=== PATIENT | male | born 1975 ===

== ENCOUNTER 2017-08-29 17:08 | Emergency (ER) | payer OTHER ==
[2017-08-29 17:18] VITALS: BMI 28.3
[2017-08-29 17:21] VITALS: BP 130/78; PULSE 77; RESP 18; TEMP 98.9; O2SAT 99
[2017-08-29] MEDS ORDERED: Erythromycin 0.5% Ophth Oint 1 APPLIC/3.5 G OS STA (17:31)
--- NOTE | 2017-08-29 17:33 | C.PDOC ---
History Of Present Illness 41-year-old male presents to the ED with complaints of 2 days of left upper eyelid swelling and redness. He states it feels itchy and painful when pressed. He denies any visual changes, foreign body, or discharge. No trauma or injury to eye. Patient denies contact use. Time Seen by Provider: 08/29/17 17:20 Chief Complaint (Nursing): Eye Problem History Per: Patient History/Exam Limitations: no limitations Onset/Duration Of Symptoms: Days Current Symptoms Are (Timing): Still Present Injury To Eye?: No Past Medical History Reviewed: Historical Data, Nursing Documentation, Vital Signs Vital Signs: Last Vital Signs Temp 98.9 F 08/29/17 17:20 Pulse 77 08/29/17 17:20 Resp 18 08/29/17 17:20 BP 130/78 08/29/17 17:20 Pulse Ox 99 08/29/17 17:57 - Medical History PMH: No Chronic Diseases Surgical History: No Surg Hx Family History: States: Unknown Family Hx - Social History Hx Tobacco Use: No Hx Alcohol Use: Yes Hx Substance Use: No - Immunization History Hx Tetanus Toxoid Vaccination: No Hx Influenza Vaccination: No Hx Pneumococcal Vaccination: No Review Of Systems Except As Marked, All Systems Reviewed And Found Negative. Eyes: Positive for: Eyelid Inflammation. Negative for: Vision Change, Redness, Other (discharge or itchiness) Physical Exam - Physical Exam Appears: Non-toxic, No Acute Distress Skin: Warm, Dry Head: Atraumatic, Normacephalic Eye(s): bilateral: PERRL, EOMI, right: Normal Inspection, left: Eyelid Inflammation (Upper eyelid inflammation and pointing of inner margin) Oral Mucosa: Moist Neck: Normal ROM Chest: Symmetrical Extremity: Bilateral: Atraumatic, Normal Color And Temperature Neurological/Psych: Oriented x3, Normal Speech, Other (No focal deficits) ED Course And Treatment O2 Sat by Pulse Oximetry: 99 (RA) Pulse Ox Interpretation: Normal Medical Decision Making Medical Decision Making: Impression: Stye Plan: --Erythromycin 0.5% OS Patient remained afebrile alert and oriented with stable vital signs during ER evaluation. Patient feels comfortable going home and will be discharged. Patient given follow up instructions and prescription. Instructed to return to ER if symptoms worsen or new symptoms arise. Disposition Counseled Patient/Family Regarding: Diagnosis, Need For Followup, Rx Given - Disposition Referrals: Marlena,Manuel [Staff Provider] - Disposition: HOME/ ROUTINE Disposition Time: 17:32 Condition: STABLE Additional Instructions: aplicar cinta de media pulgada al amriposa afectado seguimiento con un oftalmlogo en rekha semana Instructions: Rehana ([employer]) Print Language: PARAGUAYAN - POA Present On Arrival: None - Clinical Impression Clinical Impression: Hortensia - PA / INSURANCE LEGAL ASSISTANT / Resident Statement MD/DO has reviewed & agrees with the documentation as recorded. - Scribe Statement The provider has reviewed the documentation as recorded by the Scribe (Kaley Rizzo) All medical record entries made by the Scribe were at my direction and personally dictated by me. I have reviewed the chart and agree that the record accurately reflects my personal performance of the history, physical exam, medical decision making, and the department course for this patient. I have also personally directed, reviewed, and agree with the discharge instructions and disposition.
[2017-08-29] MEDS ORDERED: Erythromycin 0.5% Ophth Oint 1 APPLIC/3.5 G ONE (17:40)
== END 2017-08-29 18:01 | disposition home or self-care (01) ==
LOC: C.ER 17:08
DX: H00.014 Hordeolum externum left upper eyelid (principal)